=== PATIENT | female | born 1965 | race Asian ===

== ENCOUNTER 2020-08-07 09:48 | Emergency (ER) | payer BC ==
[~2020-08-07] VITALS: Ht 157.5 cm; Wt 59.1 kg
[2020-08-07] MEDS ORDERED: MULT-1251 PEG (09:55)
[2020-08-07] MEDS ORDERED: LOVA20TA73 PO (09:55)
[2020-08-07] MEDS ORDERED: OMEG-53 PO (09:55)
[2020-08-07] MEDS ORDERED: KETOROLAC TROMETHAMINE 10 MG TABLET PO ONE (11:30)
[2020-08-07 12:50] VITALS: BP 126/75
== END 2020-08-07 19:28 | disposition home or self-care (01) ==
LOC: EMS 09:57
DX: M77.8 Other enthesopathies, not elsewhere classified (principal); E78.00 Pure hypercholesterolemia, unspecified; Z79.899 Other long term (current) drug therapy
CPT/HCPCS: 29105